=== PATIENT | male | born 1975 | race Two or more races ===

== ENCOUNTER 2016-12-11 13:56 | Emergency (ER) | payer MEDICARE, MEDICAID, SELFPAY ==
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
[2016-12-11 15:32] LABS: BASOPHIL % 0.1 %; EOSINOPHIL # 0.3 K/uL (0.0-0.5); EOSINOPHIL % 2.9 %; HEMATOCRIT 46.7 % (37.0-53.0); IMMATURE GRANULOCYTE % 0.5 %; LYMPHOCYTE # 1.5 K/uL (0.8-4.0); LYMPHOCYTE % 17.5 %; MCH 32.3 pg (27.0-34.0); MCHC 34.3 gm/dL (32.0-36.5); MCV 94.3 fl (83.0-98.0); MONOCYTE # 0.7 K/uL (0.0-1.0); MONOCYTE % 7.6 %; NEUTROPHIL # (ANC) 6.1 K/uL (1.4-9.0); NEUTROPHIL % 71.4 %; NRBC % 0 /100WBC (0-0.00); PLATELET COUNT 177 K/uL (150-450); RBC 4.95 M/uL (4.00-6.00); RDW-CV 11.9 % (11.9-14.6); WBC 8.5 K/uL (4.0-11.0)
[2016-12-11 15:52] LABS: ALBUMIN 3.6 gm/dL (3.5-5.0); ALK PHOS 91 IU/L (33-138); ALT 34 IU/L (12-78); ANION GAP 8.9 (10.0-19.0); AST 19 IU/L (10-40); BLOOD UREA NITROGEN 7 mg/dL (6-24); CALCIUM 8.5 mg/dL (8.5-10.5); CHLORIDE 109 mMol/L (96-110); CO2 29 mMol/L (22-32); CREATININE 0.9 mg/dL (0.6-1.3); ESTIMATED GFR (MDRD EQUATION) > 60; POTASSIUM 3.9 mMol/L (3.7-5.1); SODIUM 143 mMol/L (135-145); TOTAL BILIRUBIN 0.5 mg/dL (0.0-1.5); TOTAL PROTEIN 7.2 g/dL (6.0-8.4)
== END 2016-12-11 16:41 | disposition disaster alternative care site (69) ==
LOC: GMED 13:56
PROVIDERS: Emergency Medicine
DX: R10.9 Unspecified abdominal pain (principal); R19.7 Diarrhea, unspecified
CPT/HCPCS: J0500

== ENCOUNTER 2017-03-11 14:52 | Emergency (ER) | payer MEDICARE, MEDICAID, OTHER ==
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
== END 2017-03-11 15:32 | disposition disaster alternative care site (69) ==
LOC: GMED 14:52
DX: G89.18 Other acute postprocedural pain (principal); M79.602 Pain in left arm; I10 Essential (primary) hypertension; E78.00 Pure hypercholesterolemia, unspecified; M19.90 Unspecified osteoarthritis, unspecified site; F17.210 Nicotine dependence, cigarettes, uncomplicated; Z87.820 Personal history of traumatic brain injury; Z98.890 Other specified postprocedural states

== ENCOUNTER 2017-03-24 23:31 | Emergency (ER) | payer MEDICARE, MEDICAID, OTHER ==
--- NOTE | ~2017-03-24 | ER ---
PATIENT'S NAME: [facility]GAN, [facility] AGE: 41 Y [address] ROOM: [place] [address] LOCATION: [facility] ADMIT DATE: 03/24/2017 ER/Outpatient Report DISCHARGE DATE: 03/25/2017 FAMILY PHYSICIAN: PHYSICIAN, NO ATTENDING PHYSICIAN: Terry Willis Admission date and time documented on the medical record. I saw the patient at 2350 hours. CHIEF COMPLAINT: Left arm discomfort. HISTORY OF PRESENT ILLNESS: The patient is a 41-year-old male who recently had a left arm surgery. Had discomfort in his left arm. Presented to the emergency room, desired to get a splint. HOME MEDICATIONS: See attached medication list. ALLERGIES: NONE. SOCIAL HISTORY: The patient smokes about a quarter of pack of cigarettes per day. Occasional intake of alcohol. SIGNIFICANT PAST MEDICAL HISTORY: Hypertension, dyslipidemia, and tobacco abuse. OPERATIONS: Left arm surgery and back surgery. REVIEW OF SYSTEMS: All systems reviewed by me are negative with the exception of those discussed in the history of present illness. PHYSICAL EXAMINATION: VITAL SIGNS: Temperature 98.1 tympanic, pulse 64, respirations 16, blood pressure 172/88, and O2 saturation on room air is 96%. LUNGS: Clear. HEART: Regular. ABDOMEN: Soft, nontender. Good bowel tones. EXTREMITIES: The patient has some weakness in his left arm. NEUROVASCULAR: Intact. Pulse intact. PATIENT'S NAME: FLANAGAN, [facility] AGE: 41 Y [address] ROOM: [place] [address] LOCATION: [facility] ADMIT DATE: 03/24/2017 ER/Outpatient Report DISCHARGE DATE: 03/25/2017 FAMILY PHYSICIAN: PHYSICIAN, NO ATTENDING PHYSICIAN: Terry Willis SKIN: Clear. IMPRESSION: Left arm discomfort. PLAN: The patient was placed in a cock-up left wrist splint. The patient dismissed home. Observation. Activity as tolerated. Continue present home medications and care. Left cock-up wrist splint. Heat, ice, or combination intermittently to the left wrist as needed. Follow up with personal physician as scheduled or as needed. MD NORMA EVANGELISTA/modl /[id number] d: 03/25/17299 t: 03/25/17 1835, OUTPATIENT REPORT
== END 2017-03-25 00:10 | disposition disaster alternative care site (69) ==
LOC: GMED 23:31
PROC: 2W3DX1Z Immobilization of Left Lower Arm using Splint (ICD-10-PCS; principal; 2017-03-24)
DX: M79.602 Pain in left arm (principal); I10 Essential (primary) hypertension; E78.5 Hyperlipidemia, unspecified; F17.210 Nicotine dependence, cigarettes, uncomplicated; Z79.899 Other long term (current) drug therapy; Z98.890 Other specified postprocedural states
CPT/HCPCS: J1885

== ENCOUNTER → 2017-04-09 | Outpatient (CLI) | payer MEDICARE, MEDICAID, OTHER | END | disposition disaster alternative care site (69) | LOC: GRAD 08:00 | DX: M79.602 Pain in left arm (principal); X58.XXXA Exposure to other specified factors, initial encounter ==

== ENCOUNTER 2017-04-21 13:02 | Emergency (ER) | payer MEDICARE, MEDICAID ==
--- NOTE | ~2017-04-21 | ER ---
PATIENT'S NAME: JUNIE NDIAYE [facility] AGE: 41 Y [address] ROOM: [place] [address] LOCATION: [facility] ADMIT DATE: 04/21/2017 ER/Outpatient Report DISCHARGE DATE: 04/21/2017 FAMILY PHYSICIAN: Anette Mendoza MD ATTENDING PHYSICIAN: Manuel May CHIEF COMPLAINT: Shortness of breath and dizziness. HISTORY OF PRESENT ILLNESS: Mr. Ndiaye presents by private vehicle for evaluation of above symptoms. The exact onset is unclear. He had the same a few weeks ago. They resolved on their own. He states that there was this tightness in his chest more towards the right shoulder. It does not really radiate anywhere. He is a nonsmoker, but has an extensive family history of heart disease in addition to history of hypertension. It is unclear if his cholesterol was elevated, but he is on an anticholesterol medication. He denies any other symptoms other than the dizziness and chest pressure with some shortness of breath. The symptoms have been at several different locations including outside and inside in the air conditioning. They seemed to be self-limited. PAST MEDICAL HISTORY: Documented on the record and reviewed by me. SOCIAL HISTORY: Documented on the record and reviewed by me. MEDICATIONS: Documented on the record and reviewed by me. ALLERGIES: DOCUMENTED ON THE RECORD AND REVIEWED BY ME. REVIEW OF SYSTEMS: All systems reviewed and negative except as noted in the HPI. PHYSICAL EXAMINATION: VITAL SIGNS: Blood pressure 162/67, pulse 94, respiratory rate 20, temperature 99 degrees, SpO2 is 98% on room air. Pain is rated 7/10. GENERAL: Age-appropriate male. Semirecumbent on the exam table. No apparent pain or distress. NEUROLOGIC: Awake and alert. GCS is 15. No nystagmus. No coordination deficits. Gait is normal. No asymmetry of strength or cranial nerves. No focal deficits appreciated. HEENT: Normocephalic, atraumatic. Eyes are PERRL. Oropharynx is clear. PATIENT'S NAME: JUNIE NDIAYE [facility] AGE: 41 Y [address] ROOM: [place] [address] LOCATION: [facility] ADMIT DATE: 04/21/2017 ER/Outpatient Report DISCHARGE DATE: 04/21/2017 FAMILY PHYSICIAN: Anette Mendoza MD ATTENDING PHYSICIAN: Manuel May NECK: Supple. Trachea is midline. CHEST: Heart is borderline tachycardic. No murmurs. LUNGS: Clear to auscultation bilateral in all lung crouch. ABDOMEN: Soft, nontender, and nondistended. No rebound or guarding. BACK: Normal to inspection and palpation. EXTREMITIES: Warm and well perfused. No edema or deformities. SKIN: Clean, dry and intact. LABORATORY DATA AND X-RAYS: Chest x-ray is unremarkable per my review. EKG; initial and repeat EKG are notable for borderline tachycardia with otherwise normal intervals and slight left axis deviation with no signs of acute ischemia. CBC: White count minimally elevated at 11.6, 9.8 neutrophils, INR is less than 1. Remainder of CBC grossly unremarkable. CBC, no elevation or abnormalities of the electrolytes. Glucose is 206, creatinine is 1.5, GFR is 57. Unknown baseline creatinine. CPK and CK-MB are elevated, but troponin I is not elevated, repeat is also not elevated. Free T4 0.8. TSH 0.557. D- dimer is not detectable. Repeat EKG with improved heart rate, otherwise unchanged. Repeat CK-MB is 2.9, CPK is 408. IMPRESSION: 1. Nonspecific chest pain and shortness of breath. 2. Mild azotemia. 3. Elevated CPK. EMERGENCY DEPARTMENT COURSE: The patient was seen and evaluated as above. His presentation is most consistent with mild heat illness although the recurrent symptoms are unclear. His creatinine is elevated from baseline, but not significantly above normal threshold. I do not think that he meets the criteria for technical acute kidney injury. He was hydrated with 1 L of normal saline. He was given GI cocktail, Zofran and morphine with resolution of his symptoms. The morphine did cause some itching, but it was focal and self-limited. He will need to have close followup with his primary care provider within the next week as soon as possible. I encouraged hydration and recommend recheck of labs at his followup appointment. All questions answered. The patient was discharged, asymptomatic and in improved condition. MANUEL MAY MD /modl PATIENT'S NAME: JUNIE NDIAYE [facility] AGE: 41 Y [address] ROOM: [place] [address] LOCATION: [facility] ADMIT DATE: 04/21/2017 ER/Outpatient Report DISCHARGE DATE: 04/21/2017 FAMILY PHYSICIAN: Anette Mendoza MD ATTENDING PHYSICIAN: Manuel May /[id number] d: 04/22/17220 t: 05/01/17 0722, OUTPATIENT REPORT
[2017-04-21 13:25] LABS: BASOPHIL % 0.2 %; EOSINOPHIL % 0.3 %; HEMATOCRIT 45.1 % (37.0-53.0); HEMOGLOBIN 16.2 g/dL (12.0-17.0); IMMATURE GRANULOCYTE # 0.1 K/uL (0.0-0.3); IMMATURE GRANULOCYTE % 0.4 %; LYMPHOCYTE # 1.3 K/uL (0.8-4.0); LYMPHOCYTE % 11.2 %; MCH 32.7 pg (27.0-34.0); MCHC 35.9 gm/dL (32.0-36.5); MCV 90.9 fl (83.0-98.0); MONOCYTE # 0.3 K/uL (0.0-1.0); MONOCYTE % 2.9 %; MPV 10.5 fl (9.4-12.4); NEUTROPHIL # (ANC) 9.8 K/uL (1.4-9.0); NRBC % 0 /100WBC (0-0.00); PLATELET COUNT 198 K/uL (150-450); RBC 4.96 M/uL (4.00-6.00); RDW-CV 11.4 % (11.9-14.6); WBC 11.6 K/uL (4.0-11.0)
[2017-04-21 13:32] LABS: INR - (THERAPEUTIC) 0.98 (0.92-1.07); PROTIME 10.3 SECONDS (9.8-11.4); PTT 25 SECONDS (25-32)
[2017-04-21 13:47] LABS: ALBUMIN 4.2 gm/dL (3.5-5.0); ALK PHOS 79 IU/L (33-138); ALT 46 IU/L (12-78); BLOOD UREA NITROGEN 17 mg/dL (6-24); CALCIUM 9.2 mg/dL (8.5-10.5); CHLORIDE 109 mMol/L (96-110); CO2 19 mMol/L (22-32); CREATININE 1.5 mg/dL (0.6-1.3); SODIUM 139 mMol/L (135-145); TOTAL BILIRUBIN 0.9 mg/dL (0.0-1.5); TOTAL PROTEIN 7.9 g/dL (6.0-8.4)
[2017-04-21 13:50] LABS: ANION GAP 14.9 (10.0-19.0); AST 28 IU/L (10-40); CPK 448 IU/L (35-332); MAGNESIUM 2.2 mg/dL (1.8-2.6); POTASSIUM 3.9 mMol/L (3.7-5.1)
[2017-04-21 15:47] LABS: CPK 408 IU/L (35-332)
== END 2017-04-21 16:19 | disposition disaster alternative care site (69) ==
LOC: GMED 13:02
PROVIDERS: Emergency Medicine
DX: R07.9 Chest pain, unspecified (principal); R79.89 Other specified abnormal findings of blood chemistry; E78.00 Pure hypercholesterolemia, unspecified; R06.02 Shortness of breath; R74.8 Abnormal levels of other serum enzymes; I10 Essential (primary) hypertension; Z88.1 Allergy status to other antibiotic agents; Z79.899 Other long term (current) drug therapy
CPT/HCPCS: J1200; J2270; J2405; J7030